=== PATIENT | male | born 1960 | race Caucasian/White ===

== ENCOUNTER 2020-07-15 06:42 | Outpatient (CLI) | payer OTHER, SELFPAY ==
[2020-07-15 07:29] VITALS: BMI 31.0
--- NOTE | 2020-07-15 07:29 | ECG_ITS ---
[facility] Test Date: 2020-07-15 Pat Name: Jeff Kilpatrick Department: Room: Gender: Male Customer Relations Representative: Kate Lisa : 1960 Requested By: Zoe Erazo Order Number: [id number] Reading MD: Zoe Erazo M.D. Interpretive Statements NAME OF STUDY: LEXISCAN SESTAMIBI STRESS TEST INDICATION: Chest Pressure PROCEDURE: At the baseline, the EKG revealed normal sinus rhythm with a poor R wave progression. The baseline blood pressure was 175/88 mm Hg with a heart rate of 66 beats/min. Lexiscan was infused over a period of 20 seconds. A total of 0.4 milligrams of Lexiscan was infused. The stress phase was continued for a total of 5 minutes. Heart rate at the end of the stress phase was 68 with a blood pressure 160/77. The EKG at the peak infusion revealed no significant changes. Sestamibi was injected 20 seconds after the Lexiscan infusion. Blood pressure at the end of the recovery phase was 153/74 with a heart rate of 64 per minute. CONCLUSION: 1. No significant EKG changes with the LexiScan infusion 2. No LexiScan induced chest pain or cardiac arrhythmia 3. Normal blood pressure and heart rate response 4. Sestamibi/sestamibi perfusion scan pending; see separate report. Electronically Signed On 07-22-2020 22:19:54 CDT by Zoe Erazo M.D. [email or web address]
--- NOTE | 2020-07-15 07:29 | NMCV_ITS ---
NM bib perf SPECT r/s* [id number] Jeff Kilpatrick Age: 59 Gender: M : 1960 Exam Date: 07/15/2020 08:09 Ordering Phys: Zoe Erazo MD ([email or web address]) Technologist: TOM Murry Exam Location: [facility] Indications: SOB, CP STRESS TEST Please see separate stress test report in [facility] for full findings IMAGE PROTOCOL Rest/Stress 1 Lexiscan Day Radiopharmaceutical Dose (mCi) Administration Site Administered by Rest: Tc-99m 10.4 IV TOM Murry Sestamibi Stress:Tc-99m 32.6 IV TOM Payton Sestamibi Rest: 15-Jul-2020 60 Discovery 630 Stress: 15-Jul-2020 45 Discovery 630 0.4mg Lexiscan. Images obtained in supine and prone position. SPECT RESULTS Technical Quality: Excellent Raw Data Analysis: Normal Image Corrections: No attenuation or motion correction applied Summed Stress Score: 10 Summed Rest Score: 4 Summed Difference Score: 6 PERFUSION FINDINGS Moderate area of moderately decreased tracer uptake in the basal and mid inferolateral, anterolateral, apical lateral and apical anterior regions. Some reversibility was noted in the basal inferolateral, anterolateral and apical regions. FUNCTIONAL RESULTS (calculated via Gated SPECT) Stress Image LV EF (%): 66 Stress EDV (mL):116 TID: 1.03 Stress ESV (mL):40 FUNCTIONAL FINDINGS: Segmental wall motion analysis revealing diffuse hypokinesia of the septum IMPRESSIONS 1. Myocardial perfusion imaging revealing moderate area of decreased tracer uptake in the inferolateral, anterolateral and apical regions with some reversibility in the basal and apical regions suggestive of myocardial scarring with ischemia predominantly the distribution of the circumflex artery with some involvement of the left anterior descending artery. 2. Normal LV ejection fraction of 66%. 3. LV wall motion analysis revealing no gross wall motion normalities. 4. Normal LV volume. No similar previous study is available for comparison Dr Zoe Erazo MD FACC (Electronically Signed) Final Date: 15 July 2020 20:20 S
[2020-07-15 07:57] LABS: Chol HDL Ratio 2.75 mg/dL (1.0-5.00); Cholesterol 143 mg/dL (0-200); HDL Cholesterol 52 mg/dL (60-100); LDL Cholesterol Calculated 72 mg/dL (50-129); LDL HDL Ratio 1.38 RATIO (0.00-3.22); Triglycerides 95 mg/dL (0-150)
[2020-07-15] MEDS: regadenoson 0.4 Mg/5 ml Syringe IVP (08:47)
[2020-07-15 08:48] VITALS: BP 158/74; PULSE 70
== END 2020-07-15 06:43 | disposition home or self-care (01) ==
LOC: CDL 06:46
PROVIDERS: PCP Family Medicine; Visit Provider Internal Medicine Cardiovascular Disease
DX: R07.9 Chest pain, unspecified (principal); R06.02 Shortness of breath
CPT/HCPCS: 78452; 80061; 93017; A9500; J2785

== ENCOUNTER → 2021-02-28 09:10 | Outpatient (BNVA) | payer OTHER, SELFPAY | PROVIDERS: PCP Family Medicine; Visit Provider Internal Medicine Cardiovascular Disease | DX: I25.10 Atherosclerotic heart disease of native coronary artery without angina pectoris (principal); Z01.818 Encounter for other preprocedural examination; Z20.822 Contact with and (suspected) exposure to COVID-19 | CPT/HCPCS: 80048; 85025; 85610; 86850; 86900; 87635 ==

== ENCOUNTER 2021-03-02 05:55 | Outpatient (CLI) | payer OTHER, SELFPAY ==
[2021-03-02] VITALS (11 sets, daily range): BP systolic 138–177; BP diastolic 55–94; PULSE 54–77; RESP 18; TEMP 36.6–36.7; O2SAT 94–97; BMI 35.4
--- NOTE | 2021-03-02 06:00 | XACV_ITS ---
Ht: 610 cm Wt: 31 kg BSA: 1.96 m2 Gender: Male : 1960 Any Known Allergies: No known allergies Exam Priority: Routine Procedure(s): Procedure Description: Diagnostic procedure Procedure Description: Left Heart Catheterization Procedure Description: Left ventriculography Procedure Description: Aortic Arch Angiography Procedure Description: Venous Graft Catheterization Procedure Description: KUMAR Graft Catheterization Procedure Description: Coronary Angiography Castro CABELLO; Diagnostic Cath Status: Elective Diagnostic Findings * Coronary angiography shows right dominance. * The left main is a medium caliber vessel with high-grade tubular narrowing of around an 98% in the distal segment. Moderate stenosis was noted at the ostium of the LAD and the circumflex artery. * The left tendon the artery appears to be totally occluded after giving of the first septal intelligence agent. * The circumflex artery was found to have mild to moderate diffuse disease. The first obtuse marginal branch was found to have competitive blood flow. * The right coronary artery is a medium to large caliber normal vessel which was found to have mild to moderate diffuse disease. Just before its bifurcation to the PDA and the PLV branch, there is a 50% in-stent narrowing. The PDA branch was found to be flush occluded at its ostium. PLV branch was found to have mild diffuse intimal irregularities. * The saphenous venous graft to the obtuse marginal branch was found to be widely open. Just proximal and distal to the anastomotic site, the artery was found to have moderate diffuse disease. * The last visit his graft to the PDA branch was found to be widely patent. The PDA was found to have moderate diffuse disease. * The KUMAR to the LAD was found to be patent at the anastomotic site. The artery appears to taper off to his LV apex. The left anterior descending artery was found to have moderate diffuse disease. Conclusions 1. Patient has prior CABG. 2. 60-year-old white male with history of coronary disease, status post a three-vessel coronary bypass surgery, presenting with episodes of chest pain and shortness of breath. He had a myocardial perfusion imaging which revealed a small areas of reversible defect, in the distribution of the left anterior descending artery and circumflex artery. Because of the increasing episodes of the symptoms, in order to further evaluate the coronary status as well as the graft status, a cardiac catheterization was recommended. Patient underwent left heart catheterization with left and right coronary angiogram and graft angiogram today. The findings are as follows. 3. High-grade lesion in the distal left main. Total occlusion of the left anterior descending artery after the first septal intelligence agent. Mild to moderate diffuse disease in the circumflex artery. Total occlusion of the PDA branch of the right coronary artery. Patent KUMAR to the LAD, venous graft to the obtuse marginal artery and PDA branch of the right coronary artery. LVEDP of 23 mmHg. Recommendations * Continue current medical management and risk factor modification. Diagnostic RX Recommendation: medical therapy and/or counseling LV EDP: 23 mmHg Left Ventriculography Findings: * The LV gram was not performed. LVEDP was 23 mmHg. Pressures Phase:Rest AO : 124 / 78 ( 99 ) @ 5:22:00 AM 119 / 74 ( 96 ) @ 5:26:00 AM 127 / 78 ( 101 ) @ 5:33:00 AM 138 / 57 ( 86 ) @ 5:48:00 AM 134 / 56 ( 85 ) @ 5:48:00 AM 110 / 68 ( 88 ) @ 5:49:00 AM LV : 130 / -7 / 23 @ 5:47:00 AM 129 / -12 / 22 @ 5:47:00 AM 127 / -12 / 22 @ 5:48:00 AM Valves Phase:DefaultPhase AV : 0.0 @ 8:12:00 AM AV Mean Gradient: 0.0 @ 8:12:00 AM Clinical Evaluation EBL: 5mL-10mL Procedural Details Procedure Consent Obtained. Pre-Procedure Time Out. Identified patient by full name and date of as verbalized by the patient/guarantor. Does the consent match the physician's order: Yes. Accurate & Complete Informed Consent: Yes. Inpatient/Outpatient History & Physical on Chart: Yes. Visualize and Verify Site with Patient/Guarantor: N/A. Relevant Radiology Images available: N/A. Pre-op teaching completed and patient verbalized understanding. The risks, benefits, and alternatives of sedation and/or procedure were discussed by physician. The patient agrees to continue. Procedure started. Retail Banking Manager Indications: Worsening Angina. Chest Pain Symptom Assessment: Atypical Angina. [facility] Clinical Fraility Score: 4: Vulnerable. Correct patient, site and procedure confirmed by cath team. Current diagnosis: Chest Pain. PERRLA. Strong, equal hand security operations center analyst bilaterally. Lungs clear x 5 lobes. IV Site on Arrival: 20 gauge in the right anticubital. IV Fluids: 0.9% NaCl at KVO. 0 mL infused prior to company laborer. Pre Procedural Pulses: bilateral posterior tibial was 3+. Pre Procedural Pulses: right dorsalis pedis was Doppled. Pre Procedural Pulses: left dorsalis pedis was 1+. Oxygen started at 2liters/min via nasal canula. right groin was prepped with chloroprep then draped in the usual sterile fashion. Physician notified. Baseline sample Acquired. HR: 68 BPM. Physician arrived. Physician scrubbed in. Immediate Pre-Procedure Time Out. Correct Patient: Yes; Correct Procedure: Yes; Correct Site: Yes; Correct Patient Position: Yes; Correct Supplies: Yes; Dried Flammable Prep: Yes; Blood Products Available: N/A;. Admit Source: Out Patient. Lidocaine 1% infiltrated to the right groin. Arterial access obtained with micropuncture set. A 5 pakistani JL4 catheter in over wire. Multiple views taken of left coronary artery. Catheter out. A 5 pakistani JR4 catheter in over wire. Multiple views taken of right coronary artery. Catheter redirected to the SVG. SVG's to OM visualized and patent. Catheter redirected to the KUMAR. KUMAR to LAD visualized. Catheter out. A 5 pakistani LCB catheter in over wire. SVG's to OM visualized and patent. Dr Cheng notified to come review images. Catheter out. A 5 pakistani RCB catheter in over wire. SVG's to OM visualized and patent. Catheter out. A 5 pakistani Angled Pig catheter in over wire. EDP Sample taken: LV 130/-8,23; HR: 66 BPM; SpO2: 97%. EDP Sample taken: LV 129/-13,22; HR: 65 BPM; SpO2: 97%. Pullback taken: LV 127/-13,22; AO 138/57(86); Mean: 0mmHg, Peak to Peak: 0mmHg, SEP: 6sec/min; HR: 70 BPM; SpO2: 97%. Aortogram performed in MORALES @ 12 mL/second for a total of 36 mL. Catheter out. A 5 pakistani MPA2 catheter in over wire. SVG's to PDA visualized and patent. Catheter out. A Right femoral angiogram was performed to determine safe placement of closure device. Physician scrubbed out. Dr Cheng scrubbed in to perform closure device, Perclose. Patient's family updated. A Perclose ([employer]) was successful obtaining hemostatsis at the Right Femoral artery insertion site. Post Procedure: Pulses reassessed and unchanged. PERRLA. Strong, equal hand security operations center analyst bilaterally. No VTE prophylaxis required. Medication's Wasted: Lidocaine 1% = 5 mL. Medication's Wasted: Other = Hydralazine 10mg. Total IV fluids: 75 mL. Complications: none. Post-op diagnosis: Patent grafts, severe L main occlusion. Estimated blood loss: 5mL-10mL. Manual compression held to R groin for 3 minutes. Procedure completed. Patient transferred by bed to CPRU. Vital chart was stopped. Access Site Site: Right Femoral artery Sheath Size: 6 Fr Hemostasis Method: Perclose ([employer]) Hemostasis Success: Successful Procedure Medications Start: 7:11 AM Stop: 7:11 AM Medication: Fentanyl Amount: 50 mcg Route: I.V. Start: 7:11 AM Stop: 7:11 AM Medication: Versed Amount: 1 mg Route: I.V. Start: 7:15 AM Stop: 7:15 AM Medication: Heparin Amount: 1500 units Route: I.V. Start: 7:19 AM Stop: 7:19 AM Medication: Versed Amount: 1 mg Route: I.V. Start: 7:19 AM Stop: 7:19 AM Medication: Fentanyl Amount: 50 mcg Route: I.V. Start: 7:21 AM Stop: 7:21 AM Medication: Hydralazine Amount: 10 mg Route: I.V. Start: 7:41 AM Stop: 7:41 AM Medication: Versed Amount: 2 mg Route: I.V. I, the attending physician, have reviewed and verified all procedure medications. Yes, all medications given per verbal order History/Risk Factors Hypertension: Yes Dyslipidemia: Yes Peripheral Arterial Disease (PAD): No Myocardial Infarction (NH): Yes Obesity: Yes Renal Disease: No Prior Interventions PCI: No CABG: Yes Valve Surgery: No Report Signatures Finalized by Dr Zoe Erazo MD [facility] on 03/02/2021 07:59 PM
--- NOTE | 2021-03-02 07:03 | W.PM.OPSUD ---
Surgery/Procedure H&P Update DATE OF PROCEDURE: March 02, 2021 DATE H&P PERFORMED: 01/31/21 H&P UPDATE INFORMATION: I have reviewed H&P completed within last 30 days, I have examined patient prior to procedure and No changes to prior documentation PREOP DIAGNOSIS: ASHD PRIMARY INDICATION FOR PROCEDURE: Chest pain/abnormal myocardial perfusion imaging PLANNED PROCEDURE: Operation Date: 03/02/21 07:00 Proposed Procedures p Cardiac Catheterization(Left) - Zoe Erazo MD PATIENT REASSESSED PRIOR TO SEDATION, WITH NO CHANGE NOTED: Yes PHYSICAL EXAM: alert, oriented x 3, clear to auscultation bilaterally and regular rate & rhythm AIRWAY EVAL/ANESTHESIA PLAN: normal airway, see other exam findings, ASA III, Monitored Anesthesia, Local Anesthesia, Risks, benefits & alternatives of sedation and/or procedure discussed and Patient agrees to continue as planned
--- NOTE | 2021-03-02 12:28 | PC.NURSE ---
The patient ambulated himself to the restroom. Patient has no complaints. Site inspected before and after ambulating with no reddness, swelling or bleeding noted.
== END 2021-03-02 14:03 | disposition home or self-care (01) ==
PROVIDERS: PCP Family Medicine; Visit Provider Internal Medicine Cardiovascular Disease
DX: I25.118 Atherosclerotic heart disease of native coronary artery with other forms of angina pectoris (principal); R94.39 Abnormal result of other cardiovascular function study; I11.9 Hypertensive heart disease without heart failure; I25.2 Old myocardial infarction; Z95.1 Presence of aortocoronary bypass graft; Z87.891 Personal history of nicotine dependence; G47.19 Other hypersomnia; E78.2 Mixed hyperlipidemia; I25.84 Coronary atherosclerosis due to calcified coronary lesion; I25.82 Chronic total occlusion of coronary artery
CPT/HCPCS: 36415; 93459; C1760; C1769; C1887; C1894; J0360; J1644; J2250; J3010; J7030; Q9967

== ENCOUNTER → 2021-03-09 09:28 | Outpatient (BNVA) | payer OTHER, SELFPAY | PROVIDERS: PCP Family Medicine; Visit Provider Nurse Practitioner Family | DX: I25.10 Atherosclerotic heart disease of native coronary artery without angina pectoris (principal) | CPT/HCPCS: 80048 ==

== ENCOUNTER → 2021-10-28 07:24 | Outpatient (BNVA) | payer OTHER, SELFPAY | PROVIDERS: PCP Family Medicine; Visit Provider Family Medicine | DX: E78.5 Hyperlipidemia, unspecified (principal); I10 Essential (primary) hypertension | CPT/HCPCS: 80053; 80061; 83036; 85025 ==

== ENCOUNTER → 2022-04-24 07:55 | Outpatient (BNVA) | payer OTHER, SELFPAY | PROVIDERS: PCP Family Medicine; Visit Provider Family Medicine | DX: I25.10 Atherosclerotic heart disease of native coronary artery without angina pectoris (principal); E78.2 Mixed hyperlipidemia; I10 Essential (primary) hypertension; E78.5 Hyperlipidemia, unspecified | CPT/HCPCS: 80053; 80061; 85025 ==

== ENCOUNTER → 2022-10-10 08:36 | Outpatient (BNVA) | payer OTHER, SELFPAY | PROVIDERS: PCP Family Medicine; Visit Provider Family Medicine | DX: N52.9 Male erectile dysfunction, unspecified (principal); E78.2 Mixed hyperlipidemia; I10 Essential (primary) hypertension; I25.10 Atherosclerotic heart disease of native coronary artery without angina pectoris; E78.5 Hyperlipidemia, unspecified | CPT/HCPCS: 80053 ==

== ENCOUNTER → 2023-04-12 07:30 | Outpatient (BNVA) | payer OTHER, SELFPAY | PROVIDERS: PCP Family Medicine; Visit Provider Family Medicine | DX: I10 Essential (primary) hypertension (principal); I25.10 Atherosclerotic heart disease of native coronary artery without angina pectoris; E78.5 Hyperlipidemia, unspecified; E78.2 Mixed hyperlipidemia | CPT/HCPCS: 80053; 80061; 85025 ==

== ENCOUNTER → 2024-04-15 07:56 | Outpatient (BNVA) | payer BC, SELFPAY | PROVIDERS: PCP Family Medicine; Visit Provider Family Medicine | DX: I10 Essential (primary) hypertension (principal); I25.10 Atherosclerotic heart disease of native coronary artery without angina pectoris; E78.2 Mixed hyperlipidemia | CPT/HCPCS: 80053; 80061; 85025 ==